=== PATIENT | female | born 1975 | race African-American/Black ===

== ENCOUNTER 2016-10-30 17:10 | Emergency (ER) | payer SELFPAY | END 2016-10-30 18:00 | disposition home or self-care (01) | LOC: NAV ERS 17:10 | DX: B86 Scabies (principal); L30.9 Dermatitis, unspecified; I10 Essential (primary) hypertension; E66.9 Obesity, unspecified; F41.9 Anxiety disorder, unspecified; F32.9 Major depressive disorder, single episode, unspecified; F17.210 Nicotine dependence, cigarettes, uncomplicated; Z79.899 Other long term (current) drug therapy | CPT/HCPCS: 99282 ==

== ENCOUNTER 2017-03-29 07:55 | Emergency (ER) | payer SELFPAY ==
[2017-03-29] MEDS ORDERED: Azithromycin 250 MG TAB ONE (08:20)
== END 2017-03-29 08:28 | disposition home or self-care (01) ==
LOC: NAV ERS 07:55
DX: J02.0 Streptococcal pharyngitis (principal); E66.9 Obesity, unspecified; I10 Essential (primary) hypertension; M06.9 Rheumatoid arthritis, unspecified; M10.9 Gout, unspecified; F41.9 Anxiety disorder, unspecified; F32.9 Major depressive disorder, single episode, unspecified; F17.210 Nicotine dependence, cigarettes, uncomplicated; Z79.899 Other long term (current) drug therapy
CPT/HCPCS: 99283

== ENCOUNTER 2017-05-18 16:55 | Emergency (ER) | payer SELFPAY ==
[2017-05-18] MEDS ORDERED: methylPREDNISolone Sod Succ/PF 125 MG/2 ML VIAL ONE (17:37)
== END 2017-05-18 18:37 | disposition home or self-care (01) ==
LOC: NAV ERS 16:55
DX: R21 Rash and other nonspecific skin eruption (principal); I10 Essential (primary) hypertension; E66.9 Obesity, unspecified; M06.9 Rheumatoid arthritis, unspecified; M10.9 Gout, unspecified; F41.9 Anxiety disorder, unspecified; F32.9 Major depressive disorder, single episode, unspecified; Z79.899 Other long term (current) drug therapy
CPT/HCPCS: 96372; J2930

== ENCOUNTER 2017-07-08 10:01 | Emergency (ER) | payer SELFPAY ==
[~2017-07-08 10:01] MED LIST: Iopamidol 370 76% 100 ML VIAL ONE
[2017-07-08] MEDS ORDERED: predniSONE 20 MG TAB ONE (10:18)
--- NOTE | 2017-07-08 10:43 | RAD ---
CHEST 1 VIEW: Date: 07/08/17 HISTORY: Shortness of breath. COMPARISON: 12/03/16. FINDINGS: Portable upright chest demonstrates cardiomegaly. Pulmonary vessels and hilum are normal. Costophreni c angles are clear. No mass. No consolidation. No pneumothorax or osseous abnormalities. IMPRESSION: No acute cardiopulmonary process. POS: [facility]
[2017-07-08] MEDS ORDERED: Magnesium Sulfate 2 GM/NS 0.9% 50 ML BAG ONE (11:31)
[2017-07-08] MEDS ORDERED: Sodium Chloride 0.9% 1,000 ML ONE (11:44)
[2017-07-08 11:49] LABS: ALT (SGPT) 42 U/L (8-55); AST (SGOT) 35 U/L (5-34); Albumin 4.1 g/dL (3.5-5.0); Alkaline Phosphatase 76 U/L (40-150); Anion Gap 15 mmol/L (10-20); BUN (Urea Nitrogen) 8 mg/dL (7.0-18.7); Bilirubin, Total 0.4 mg/dL (0.2-1.2); Calc. Creatinine Clearance 0 mL/min (70-130); Calcium 9.1 mg/dL (7.8-10.44); Carbon Dioxide 24 mmol/L (22-29); Chloride 103 mmol/L (98-107); Estimated GFR-MDRD 74; Globulin 3.3 g/dL (2.4-3.5); Glucose 138 mg/dL (70-105); Protein, Total 7.4 g/dL (6.0-8.3); Sodium 139 mmol/L (136-145)
[2017-07-08 11:51] LABS: CKMB 0.9 ng/mL (0-6.6); Troponin I 0.038 ng/mL (< 0.028)
[2017-07-08 11:52] LABS: Potassium 2.9 mmol/L (3.5-5.1)
[2017-07-08 11:55] LABS: Amphetamine Not Detected (NotDetected); Barbiturates Screen Not Detected (NotDetected); Benzodiazepine Screen Not Detected (NotDetected); Cocaine Metabolite Screen Not Detected (NotDetected); Medtox Control Line Valid? VALID (VALID); Methadone Not Detected (NotDetected); Methamphetamine Not Detected (NotDetected); Opiate Screen Not Detected (NotDetected); Oxycodone Screen Not Detected (NotDetected); Phencyclidine (PCP) Not Detected (NotDetected); THC/Cannabinoid Screen Not Detected (NotDetected); Tricyclic Screen Not Detected (NotDetected)
[2017-07-08] MEDS ORDERED: Potassium Chloride 20 MEQ/100 ML PREMIX BAG ONE ×2 (11:55→14:41)
[2017-07-08 12:13] LABS: Eosinophils 2 % (0-10); Lymphocytes 47 % (21-51); MDiff Complete? YES; Mean Corpuscular HGB CONC 31.1 g/dL (32.0-36.0); Mean Corpuscular Hemoglobin 28.1 pg (27.0-31.0); Mean Corpuscular Volume 90.4 fl (81.0-99.0); Mean Platelet Volume 10.4 fL (7.4-10.4); Monocytes 6 % (0-10); Neutrophil 38 % (42-75); Nucleated RBC 1 % (0); Platelet Count 245 thou/uL (130-400); RBC Distribution Width 12.6 % (11.5-14.5); Reactive Lymphocytes 6 % (0-10); White Blood Cell (WBC) Count 6.3 thou/uL (4.8-10.8)
[2017-07-08 12:15] LABS: Bilirubin Negative (Negative); Clarity Clear (Clear); Glucose, Urine (Dipstick) Negative (Negative); Leukocyte Trace (Negative); Nitrite Negative (Negative); Protein, Urine (Dipstick) > or equal to 300 mg/dL (Neg-Trace); Urobilinogen 0.2 mg/dL (0.2-1.0); pH, Urine 5.5 (5.0-9.0)
[2017-07-08 12:16] LABS: Blood, Urine Negative (Negative); Specific Gravity, Urine 1.031 (1.002-1.036)
[2017-07-08] MEDS ORDERED: Sodium Chloride 0.9% 100 ML ONE (13:38)
[2017-07-08] MEDS ORDERED: Ketorolac Tromethamine 30 MG/ML VIAL ONE (13:53)
[2017-07-08] MEDS ORDERED: Levofloxacin 500 mg/D5W 100 ml Premix Bag ONE (14:30)
--- NOTE | 2017-07-08 15:15 | CT ---
CT ANGIOGRAM OF THE CHEST: Date: 07/08/17 HISTORY: Tachycardia. Wheezing. Elevated D-Dimer. Shortness of breath. COMPARISON: None. TECHNIQUE: CT angiogram of the chest is performed in the axial plane. Sagittal and coronal, as well as bilateral oblique three-dimensional reformatted images are submitted for interpretation. FINDINGS: Limited evaluation of the pulmonary arterial system due to location of IV and subsequent rate of inje ction. Essential pulmonary arterial system is adequately assessed and there is no evidence of central pulmonary artery filling defect to suggest thrombosis. The lobar, segmental, and subsegmental arteri es cannot be adequately assessed. There is no mediastinal mass. Heart size is within normal limits. No pericardial effusion. Minimal co ronary artery calcifications. Thoracic aorta and upper abdominal aorta have a normal caliber. No manuelito aortic fat stranding. Visualized upper solid organs are unremarkable. Trachea and central bronchi are patent. There are nonspecific ground-glass and tree-in-bud opacities involving the right upper lobe, right lower lobe, and to a lesser extent left lower lobe. There is a more focal ground-glass opacity in the right upper lobe, measuring 3.1 x 1.2 cm. Infection, possibly atypical, is favored. There is no pleural effusion. There is no pneumothorax. There are no osteoblastic or lytic lesions. IMPRESSION: 1. Limited evaluation of the pulmonary arterial system due to limited contrast bolus administration. No obvious central PE. 2. Multilobar atypical pneumonia. POS: [facility]
== END 2017-07-08 16:27 | disposition short-term general hospital (02) ==
LOC: NAV ERS 10:01
DX: J18.9 Pneumonia, unspecified organism (principal); E66.9 Obesity, unspecified; I10 Essential (primary) hypertension; F41.9 Anxiety disorder, unspecified; M06.9 Rheumatoid arthritis, unspecified; F32.9 Major depressive disorder, single episode, unspecified; Z79.899 Other long term (current) drug therapy
CPT/HCPCS: 71010; 71275; 80053; 80306; 81003; 81015; 82553; 84484; 85025; 85379; 87040; 93005; 94640; 96361; 96365; 96366; 96367; 96368; 96375; J1885; J1956; J3370; J3475; J3480; J7050; J7506; J7620

== ENCOUNTER 2017-09-04 07:55 | Emergency (ER) | payer SELFPAY ==
[2017-09-04] MEDS ORDERED: diphenhydrAMINE 50 MG/ML VIAL ONE (08:52)
[2017-09-04] MEDS ORDERED: Sodium Chloride 0.9% 1,000 ML ONE (08:52)
[2017-09-04] MEDS ORDERED: methylPREDNISolone Sod Succ/PF 125 MG/2 ML VIAL ONE (08:52)
[2017-09-04] MEDS ORDERED: Promethazine HCl 25 MG/ML VIAL ONE (08:52)
== END 2017-09-04 10:55 | disposition home or self-care (01) ==
LOC: NAV ERS 07:55
DX: L40.9 Psoriasis, unspecified (principal); R51 Headache; I10 Essential (primary) hypertension; E66.9 Obesity, unspecified; M10.9 Gout, unspecified; M06.9 Rheumatoid arthritis, unspecified; F41.9 Anxiety disorder, unspecified; F32.9 Major depressive disorder, single episode, unspecified; Z79.899 Other long term (current) drug therapy
CPT/HCPCS: 96365; 96375; J1200; J2550; J2930; J7050

== ENCOUNTER 2017-11-05 01:02 | Emergency (ER) | payer SELFPAY ==
[2017-11-05] MEDS ORDERED: Mag-Al Plus 1200 MG/1200 MG/120 MG/30 ML UDCUP ONE (01:20)
[2017-11-05] MEDS ORDERED: Lidocaine Viscous Sol 2% 15 ml UD Cup ONE (01:20)
== END 2017-11-05 01:56 | disposition short-term general hospital (02) ==
LOC: NAV ERS 01:02
DX: R10.13 Epigastric pain (principal); I10 Essential (primary) hypertension; E66.9 Obesity, unspecified; M06.9 Rheumatoid arthritis, unspecified; M10.9 Gout, unspecified; F41.9 Anxiety disorder, unspecified; F32.9 Major depressive disorder, single episode, unspecified; Z79.899 Other long term (current) drug therapy
CPT/HCPCS: 93005

== ENCOUNTER 2018-04-02 08:28 | Emergency (ER) | payer SELFPAY ==
[2018-04-02] MEDS ORDERED: predniSONE 20 MG TAB ONE (08:57)
== END 2018-04-02 09:12 | disposition home or self-care (01) ==
LOC: NAV ERS 08:28
DX: L30.8 Other specified dermatitis (principal); I10 Essential (primary) hypertension; F41.9 Anxiety disorder, unspecified; F32.9 Major depressive disorder, single episode, unspecified; M10.9 Gout, unspecified; M06.9 Rheumatoid arthritis, unspecified; Z79.899 Other long term (current) drug therapy
CPT/HCPCS: 99282; J7506

== ENCOUNTER 2018-12-14 13:24 | Emergency (ER) | payer SELFPAY ==
--- NOTE | 2018-12-14 14:18 | RAD ---
EXAM: Left foot: 3 views INDICATIONS: Joint pain COMPARISON: None. FINDINGS: Tarsals unremarkable. Enthesophytes are seen from the calcaneus. Mild DJD at the tarsal met atarsal joints. MTP joints unremarkable. No fracture or acute abnormality. IMPRESSION: No acute finding
== END 2018-12-14 14:55 | disposition home or self-care (01) ==
LOC: NAV ERS 13:24
DX: M10.9 Gout, unspecified (principal); I10 Essential (primary) hypertension; E66.9 Obesity, unspecified; F41.9 Anxiety disorder, unspecified; F32.9 Major depressive disorder, single episode, unspecified; Z79.899 Other long term (current) drug therapy
CPT/HCPCS: 36415; 84550

== ENCOUNTER 2019-03-25 18:34 | Emergency (ER) | payer OTHER ==
[2019-03-25] MEDS ORDERED: Sodium Chloride 0.9% 1,000 ML ONE (19:11)
[2019-03-25 19:20] LABS: #Basophils 0.2 thou/uL (0.0-0.2); #Eosinphils 0.3 thou/uL (0.0-0.7); #Lymphocytes 4.4 thou/uL (1.20-3.40); #Monocytes 0.7 thou/uL (0.11-0.59); #Neutrophils 5.6 thou/uL (1.40-6.50); %Basophils 1.7 % (0.0-1.0); %Eosinophils 3.1 % (0.0-10.0); %Lymphocytes 39.4 % (21.0-51.0); %Monocytes 6.1 % (0.0-10.0); %Neutrophils 49.7 % (42.0-75.0); Hemoglobin 13.4 g/dL (12.0-16.0); Mean Corpuscular Hemoglobin 27.3 pg (27.0-31.0); Mean Corpuscular Volume 87.9 fL (78.0-98.0); Mean Platelet Volume 10.8 fL (7.4-10.4); Platelet Count 323 thou/uL (130-400); Red Blood Cell (RBC) Count 4.93 mill/uL (4.20-5.40); White Blood Cell (WBC) Count 11.3 thou/uL (4.8-10.8)
[2019-03-25 19:32] LABS: ALT (SGPT) 33 U/L (8-55); AST (SGOT) 21 U/L (5-34); Albumin 4.2 g/dL (3.5-5.0); Alkaline Phosphatase 101 U/L (40-150); Anion Gap 15 mmol/L (10-20); BUN (Urea Nitrogen) 12 mg/dL (7.0-18.7); Bilirubin, Total 0.3 mg/dL (0.2-1.2); Calc. Creatinine Clearance 0 mL/min (70-130); Calcium 9.4 mg/dL (7.8-10.44); Carbon Dioxide 24 mmol/L (22-29); Chloride 107 mmol/L (98-107); Estimated GFR-MDRD 75; Globulin 3.2 g/dL (2.4-3.5); Glucose 134 mg/dL (70-105); Lipase 13 U/L (8-78); Potassium 3.2 mmol/L (3.5-5.1); Protein, Total 7.4 g/dL (6.0-8.3); Sodium 143 mmol/L (136-145)
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
== END 2019-03-25 21:15 | disposition home or self-care (01) ==
LOC: NAV ERS 18:34
DX: S43.402A Unspecified sprain of left shoulder joint, initial encounter (principal); S20.212A Contusion of left front wall of thorax, initial encounter; E66.9 Obesity, unspecified; I10 Essential (primary) hypertension; M10.9 Gout, unspecified; F41.9 Anxiety disorder, unspecified; F32.9 Major depressive disorder, single episode, unspecified; Z79.899 Other long term (current) drug therapy; V49.49XA Driver injured in collision with other motor vehicles in traffic accident, initial encounter
CPT/HCPCS: 71260; 74177; 80053; 83605; 83690; 85025; 93005; 94760; 96360; 96361; G0390; J7050; Q9967

== ENCOUNTER 2019-05-29 06:46 | Emergency (ER) | payer OTHER ==
[2019-05-29] MEDS ORDERED: Ibuprofen 800 MG TAB ONE (07:55)
== END 2019-05-29 08:00 | disposition home or self-care (01) ==
LOC: NAV ERS 06:46
DX: J06.9 Acute upper respiratory infection, unspecified (principal); E66.9 Obesity, unspecified; I10 Essential (primary) hypertension; M10.9 Gout, unspecified; F41.9 Anxiety disorder, unspecified; F32.9 Major depressive disorder, single episode, unspecified; Z79.899 Other long term (current) drug therapy
CPT/HCPCS: 87804; 99283

== ENCOUNTER 2020-01-06 09:38 | Emergency (ER) | payer BC ==
[2020-01-06] MEDS ORDERED: Insulin Regular 300 UNITS/3 ML VIAL ONE (10:23)
[2020-01-06 10:28] LABS: Base Excess-Venous 10.1 mmol/L (-2.0 to 3.0); CO2 Tension (PvCO2) 42.8 mmHg (40.0-50.0); Potassium 2.2 mmol/L (3.5-5.1); Sodium 127 mmol/L (138-145); vO2 Saturation-calc 97.1 % (60.0-85.0)
[2020-01-06 10:29] LABS: Chloride 80 mmol/L (98-107); T. Carbon Dioxide 35.7 mmol/L (22.0-28.0)
[2020-01-06 10:30] LABS: Calcium, Ionized 0.87 mmol/L (See Comments:)
[2020-01-06 10:34] LABS: Bicarbonate (HCO3v) 34.4 mmol/L (22.0-28.0)
[2020-01-06 10:43] LABS: ALT (SGPT) 17 U/L (8-55); AST (SGOT) 13 U/L (5-34); Alkaline Phosphatase 116 U/L (40-110); Anion Gap 23 mmol/L (10-20); BUN (Urea Nitrogen) 10 mg/dL (7.0-18.7); Bilirubin, Total 0.5 mg/dL (0.2-1.2); Calc. Creatinine Clearance 0 mL/min (70-130); Carbon Dioxide 32 mmol/L (22-29); Chloride 77 mmol/L (98-107); Estimated GFR-MDRD 34; Globulin 2.7 g/dL (2.4-3.5); Protein, Total 6.7 g/dL (6.0-8.3); Sodium 129 mmol/L (136-145)
[2020-01-06] MEDS ORDERED: Sodium Chloride 0.9% 2,000 ML ONE (10:52)
[2020-01-06] MEDS ORDERED: NS 0.9% w/ 20 MEQ KCL 1,000 ML ONE (10:58)
[2020-01-06] MEDS ORDERED: Potassium Chloride 20 MEQ TAB ONE ×2 (11:05→12:34)
[2020-01-06 11:07] LABS: #Basophils 0.2 thou/uL (0.0-0.2); #Eosinphils 0.2 thou/uL (0.0-0.7); #Lymphocytes 3.6 thou/uL (1.20-3.40); #Monocytes 0.8 thou/uL (0.11-0.59); #Neutrophils 4.3 thou/uL (1.40-6.50); %Basophils 1.9 % (0.0-1.0); %Eosinophils 2.5 % (0.0-10.0); %Lymphocytes 39.1 % (21.0-51.0); %Monocytes 8.7 % (0.0-10.0); %Neutrophils 47.8 % (42.0-75.0); Mean Corpuscular HGB CONC 30.5 g/dL (32.0-36.0); Mean Corpuscular Hemoglobin 27.6 pg (27.0-31.0); Mean Corpuscular Volume 90.5 fL (78.0-98.0); Mean Platelet Volume 16.6 fL (7.4-10.4); Platelet Count 223 thou/uL (130-400); RBC Distribution Width 11.9 % (11.5-14.5); Red Blood Cell (RBC) Count 5.45 mill/uL (4.20-5.40); White Blood Cell (WBC) Count 9.1 thou/uL (4.8-10.8)
[2020-01-06] MEDS ORDERED: Ondansetron PF 4 MG/2 ML Vial ONE (11:09)
[2020-01-06 11:18] LABS: Potassium 2.5 mmol/L (3.5-5.1)
[2020-01-06 11:20] LABS: Glucose 855 mg/dL (70-105)
[2020-01-06 12:04] LABS: Bilirubin Negative (Negative); Blood, Urine Negative (Negative); Clarity Clear (Clear); Glucose, Urine (Dipstick) 500 mg/dL (Negative); Leukocyte Negative (Negative); Nitrite Negative (Negative); Protein, Urine (Dipstick) Negative (Neg-Trace); Urobilinogen 0.2 mg/dL (Less than 2)
[2020-01-06 17:35] LABS: Hemoglobin A1c Greater than 14.0 % (4.0-6.0)
== END 2020-01-06 12:50 | disposition short-term general hospital (02) ==
LOC: NAV ERS 09:38
DX: E11.65 Type 2 diabetes mellitus with hyperglycemia (principal); E87.6 Hypokalemia; E66.9 Obesity, unspecified; M06.9 Rheumatoid arthritis, unspecified; I10 Essential (primary) hypertension; M10.9 Gout, unspecified; Z87.891 Personal history of nicotine dependence; Z79.899 Other long term (current) drug therapy; Z79.4 Long term (current) use of insulin
CPT/HCPCS: 80053; 81003; 82010; 82330; 82803; 83036; 85014; 85025; 93005; 96361; 96365; 96366; 96375; J1815; J2405; J3480; J7050

== ENCOUNTER 2020-05-21 13:58 | Emergency (ER) | payer BC, SELFPAY ==
--- NOTE | 2020-05-21 14:25 | RAD ---
Right foot 3 views HISTORY: Pain. FINDINGS: Lisfranc joint alignment is anatomic. Loss of plantar arch on the lateral view. Osteophytosis throughout the foot. Achilles enthesophyte arises from the posterior aspect of the calc aneus. Benign-appearing osseous excrescences project from the inferior aspect of the calcaneus and the medial margin of the talar neck. No acute fracture, dislocation, or aggressive osseous erosions. IMPRESSION : No acute osseous abnormalities are demonstrated. Pes planus. Achilles heel spur.
--- NOTE | 2020-05-21 14:26 | RAD ---
Right ankle 3 views HISTORY: Pain. FINDINGS: Ankle mortise and talar dome are intact. Mild to moderate osteophytosis. Mild joint space n arrowing. Osseous excrescences at the calcaneus better detailed on dedicated foot exam. IMPRESSION : Mild osteoarthritic changes right ankle. No acute osseous abnormalities are demonstrated.
[2020-05-21] MEDS ORDERED: Ketorolac Tromethamine 60 MG/2 ML VIAL ONE (14:28)
[2020-05-21] MEDS ORDERED: traMADol HCl 50 MG TAB ONE (14:28)
== END 2020-05-21 14:50 | disposition home or self-care (01) ==
LOC: NAV ERS 13:58
DX: S93.401A Sprain of unspecified ligament of right ankle, initial encounter (principal); M10.9 Gout, unspecified; E66.9 Obesity, unspecified; I10 Essential (primary) hypertension; M06.9 Rheumatoid arthritis, unspecified; W18.2XXA Fall in (into) shower or empty bathtub, initial encounter; Z79.899 Other long term (current) drug therapy
CPT/HCPCS: 96372; J1885

== ENCOUNTER 2021-02-02 11:59 | Outpatient (CLI) | payer BC | END 2021-02-02 12:00 | disposition home or self-care (01) | LOC: NAV RAD 11:59 | PROVIDERS: ATTEND Family Medicine | DX: M54.5 Low back pain (principal); M47.816 Spondylosis without myelopathy or radiculopathy, lumbar region | CPT/HCPCS: 72072; 72100 ==

== ENCOUNTER 2021-03-20 12:40 | Emergency (ER) | payer BC, MEDICAID | END 2021-03-20 13:35 | disposition home or self-care (01) | LOC: NAV ERS 12:40 | DX: M25.531 Pain in right wrist (principal); I10 Essential (primary) hypertension; M06.9 Rheumatoid arthritis, unspecified; Z87.891 Personal history of nicotine dependence | CPT/HCPCS: 99283 ==

== ENCOUNTER 2021-07-06 15:17 | Outpatient (CLI) | payer BC | END 2021-07-06 15:18 | disposition home or self-care (01) | LOC: NAV RAD 15:17 | PROVIDERS: ATTEND Family Medicine | DX: J06.9 Acute upper respiratory infection, unspecified (principal); R05.9 Cough, unspecified; R91.8 Other nonspecific abnormal finding of lung field | CPT/HCPCS: 71046 ==

== ENCOUNTER 2021-07-15 20:17 | Emergency (ER) | payer BC ==
[2021-07-15] MEDS ORDERED: Sodium Chloride 0.9% 1,000 ML ONE ×2 (20:45→21:25)
[2021-07-15 21:14] LABS: ALT (SGPT) 30 U/L (8-55); AST (SGOT) 25 U/L (5-34); Albumin 4.3 g/dL (3.5-5.0); Alkaline Phosphatase 122 U/L (40-110); Anion Gap 19 mmol/L (10-20); BUN (Urea Nitrogen) 26 mg/dL (7.0-18.7); Bilirubin, Total 0.4 mg/dL (0.2-1.2); CK (CPK) 114 U/L (29-168); Calc. Creatinine Clearance 0 mL/min (70-130); Calcium 9.8 mg/dL (7.8-10.44); Carbon Dioxide 30 mmol/L (22-29); Chloride 90 mmol/L (98-107); Globulin 4.3 g/dL (2.4-3.5); Glucose 305 mg/dL (70-105); Lipase 25 U/L (8-78); Protein, Total 8.6 g/dL (6.0-8.3); Sodium 136 mmol/L (136-145)
[2021-07-15 21:15] LABS: Hemoglobin 15.9 g/dL (12.0-16.0); Mean Corpuscular HGB CONC 31.3 g/dL (32.0-36.0); Mean Corpuscular Hemoglobin 29.2 pg (27.0-31.0); Mean Corpuscular Volume 93.3 fL (78.0-98.0); Mean Platelet Volume 12.1 fL (7.4-10.4); Platelet Count 324 thou/uL (130-400); RBC Distribution Width 12.9 % (11.5-14.5); Red Blood Cell (RBC) Count 5.46 mill/uL (4.20-5.40); White Blood Cell (WBC) Count 26.8 thou/uL (4.8-10.8)
[2021-07-15 21:16] LABS: Base Excess-Venous 5.8 mmol/L (-2.0 to 3.0); Bicarbonate (HCO3v) 34.2 mmol/L (22.0-28.0); CO2 Tension (PvCO2) 61.1 mmHg (42.0-51.0); Calcium, Ionized 1.07 mmol/L (1.15-1.33); Chloride 92 mmol/L (98-107); Potassium 2.9 mmol/L (3.5-5.1); Sodium 139 mmol/L (138-145); T. Carbon Dioxide 36.1 mmol/L (22.0-28.0); vO2 Saturation-calc 47.9 % (60.0-85.0)
[2021-07-15 21:20] LABS: Potassium 2.9 mmol/L (3.5-5.1)
[2021-07-15] MEDS ORDERED: Cefepime 2 GM VIAL ONE (21:29)
[2021-07-15] MEDS ORDERED: Sodium Chloride 0.9% 100 ML ONE (21:29)
[2021-07-15 21:47] LABS: SARS-CoV-2 NAA Rapid Test Not Detected (NotDetected)
[2021-07-15 21:51] LABS: Bilirubin Negative (Negative); Blood, Urine Negative (Negative); Clarity Clear (Clear); Glucose, Urine (Dipstick) Negative (Negative); Ketone, Urine Negative (Negative); Leukocyte Moderate (Negative); Nitrite Negative (Negative); Protein, Urine (Dipstick) Negative (Neg-Trace); Urobilinogen 0.2 mg/dL (Less than 2)
[2021-07-15] MEDS ORDERED: Sodium Chloride 0.9% 0 ML ONE (21:51)
[2021-07-15 22:00] LABS: Eosinophils 2 % (0-10); Lymphocytes 38 % (21-51); MDiff Complete? YES; Monocytes 4 % (0-10); Neutrophil 56 % (42-75); Platelet Morphology Comment Appears Adequate; RBC Morphology Normal
[2021-07-15 22:02] LABS: Bacteria/HPF Rare-Few HPF (None Seen); RBC/HPF 0-3 HPF (0-3); Squamous Epithelial 21-50 HPF (0-3)
[2021-07-15 23:26] LABS: Lactic Acid 2.1 mmol/L (0.5-2.2)
== END 2021-07-15 23:30 | disposition short-term general hospital (02) ==
LOC: NAV ERS 20:17
DX: A41.9 Sepsis, unspecified organism (principal); R65.20 Severe sepsis without septic shock; J20.9 Acute bronchitis, unspecified; Z20.822 Contact with and (suspected) exposure to COVID-19; I10 Essential (primary) hypertension; E11.9 Type 2 diabetes mellitus without complications; E66.9 Obesity, unspecified; M06.9 Rheumatoid arthritis, unspecified; M10.9 Gout, unspecified; F17.210 Nicotine dependence, cigarettes, uncomplicated; Z79.4 Long term (current) use of insulin; Z79.899 Other long term (current) drug therapy
CPT/HCPCS: 0240U; 71045; 80053; 81003; 81015; 82010; 82330; 82550; 82803; 83605; 83690; 84443; 84484; 85025; 85379; 87040; 87086; 87149; 93005; 96365; 96367; J0692; J3370; J3490; J7030; J7050

== ENCOUNTER 2022-01-19 15:20 | Emergency (ER) | payer SELFPAY ==
[2022-01-19 16:28] LABS: Bilirubin Negative (Negative); Blood, Urine Negative (Negative); Clarity Clear (Clear); Glucose, Urine (Dipstick) >=1000 mg/dL (Negative); Ketone, Urine Negative (Negative); Leukocyte Negative (Negative); Nitrite Negative (Negative); Protein, Urine (Dipstick) Negative (Neg-Trace); Specific Gravity, Urine 1.015 (1.005-1.030); Urobilinogen 0.2 mg/dL (Less than 2); pH, Urine 5.5 (5.0-9.0)
[2022-01-19 16:30] LABS: Pregnancy Test - Urine (BHCG) Negative (Negative); Pregu Control Background? CLEAR/WHITE (CLR/WHITE); Pregu Control Bar Appear? YES (CONTROL BAR); Specific Gravity 1.015 (1.002-1.036)
[2022-01-19] MEDS ORDERED: predniSONE 20 MG TAB ONE (16:42)
[2022-01-19] MEDS ORDERED: traMADol HCl 50 MG TAB ONE (16:42)
== END 2022-01-19 17:10 | disposition home or self-care (01) ==
LOC: NAV ERS 15:20
DX: M06.9 Rheumatoid arthritis, unspecified (principal); M25.50 Pain in unspecified joint; E78.5 Hyperlipidemia, unspecified; I10 Essential (primary) hypertension; E66.9 Obesity, unspecified; Z87.891 Personal history of nicotine dependence; Z79.899 Other long term (current) drug therapy
CPT/HCPCS: 81003; 81025; 99283; J7512

== ENCOUNTER 2022-03-02 08:49 | Emergency (ER) | payer SELFPAY ==
[2022-03-02 10:14] LABS: #Basophils 0.1 thou/uL (0.0-0.2); #Eosinphils 0.4 thou/uL (0.0-0.7); #Lymphocytes 4.2 thou/uL (1.20-3.40); #Monocytes 0.5 thou/uL (0.11-0.59); #Neutrophils 5.5 thou/uL (1.40-6.50); %Basophils 1.4 % (0.0-1.0); %Lymphocytes 39.2 % (21.0-51.0); %Monocytes 4.4 % (0.0-10.0); Hemoglobin 12.5 g/dL (12.0-16.0); Mean Corpuscular HGB CONC 29.6 g/dL (32.0-36.0); Mean Corpuscular Hemoglobin 27.6 pg (27.0-31.0); Mean Corpuscular Volume 93.2 fL (78.0-98.0); Mean Platelet Volume 11.9 fL (7.4-10.4); Platelet Count 265 thou/uL (130-400); RBC Distribution Width 14.1 % (11.5-14.5); Red Blood Cell (RBC) Count 4.54 mill/uL (4.20-5.40); White Blood Cell (WBC) Count 10.8 thou/uL (4.8-10.8)
[2022-03-02 10:27] LABS: BHCG - Serum Negative (NEGATIVE); Pregs Control Bar Appear? YES (CONTROL BAR)
[2022-03-02 10:37] LABS: ALT (SGPT) 20 U/L (8-55); AST (SGOT) 24 U/L (5-34); Albumin 3.6 g/dL (3.5-5.0); Alkaline Phosphatase 86 U/L (40-110); Anion Gap 17 mmol/L (10-20); BUN (Urea Nitrogen) 8 mg/dL (7.0-18.7); Bilirubin, Total 0.4 mg/dL (0.2-1.2); Calc. Creatinine Clearance 0 mL/min (70-130); Calcium 8.8 mg/dL (7.8-10.44); Carbon Dioxide 17 mmol/L (22-29); Chloride 111 mmol/L (98-107); Estimated GFR 91; Globulin 3.3 g/dL (2.4-3.5); Glucose 140 mg/dL (70-105); Protein, Total 6.9 g/dL (6.0-8.3); Sodium 141 mmol/L (136-145)
[2022-03-02] MEDS ORDERED: Ketorolac Tromethamine 30 MG/ML VIAL ONE (10:53)
== END 2022-03-02 11:15 | disposition home or self-care (01) ==
LOC: NAV ERS 08:49
DX: L02.831 Carbuncle of head [any part, except face] (principal); R29.700 NIHSS score 0; I12.9 Hypertensive chronic kidney disease with stage 1 through stage 4 chronic kidney disease, or unspecified chronic kidney disease; E11.22 Type 2 diabetes mellitus with diabetic chronic kidney disease; N18.2 Chronic kidney disease, stage 2 (mild); E78.5 Hyperlipidemia, unspecified; M06.9 Rheumatoid arthritis, unspecified; M10.9 Gout, unspecified; F17.210 Nicotine dependence, cigarettes, uncomplicated; H40.9 Unspecified glaucoma; E66.01 Morbid (severe) obesity due to excess calories; Z68.45 Body mass index [BMI] 70 or greater, adult; Z79.4 Long term (current) use of insulin; Z79.899 Other long term (current) drug therapy
CPT/HCPCS: 70450; 80053; 84703; 85025; 87070; 87077; 87186; 87205; 96374; J1885

== ENCOUNTER 2022-04-27 17:54 | Emergency (ER) | payer SELFPAY | END 2022-04-27 18:41 | disposition home or self-care (01) | LOC: NAV ERS 17:54 | DX: M06.9 Rheumatoid arthritis, unspecified (principal); G89.4 Chronic pain syndrome; E78.5 Hyperlipidemia, unspecified; I12.9 Hypertensive chronic kidney disease with stage 1 through stage 4 chronic kidney disease, or unspecified chronic kidney disease; M10.9 Gout, unspecified; E11.22 Type 2 diabetes mellitus with diabetic chronic kidney disease; N18.2 Chronic kidney disease, stage 2 (mild); Z79.899 Other long term (current) drug therapy | CPT/HCPCS: 99283 ==

== ENCOUNTER 2022-05-04 16:17 | Emergency (ER) | payer OTHER, SELFPAY ==
[2022-05-04 17:12] LABS: Band 1 % (5-11); Eosinophils 2 % (0-10); Hemoglobin 14.4 g/dL (12.0-16.0); Lymphocytes 46 % (21-51); MDiff Complete? YES; Mean Corpuscular HGB CONC 32.8 g/dL (32.0-36.0); Mean Corpuscular Hemoglobin 29.6 pg (27.0-31.0); Mean Corpuscular Volume 90.3 fL (78.0-98.0); Mean Platelet Volume 11.7 fL (7.4-10.4); Monocytes 4 % (0-10); Neutrophil 46 % (42-75); Platelet Count 363 thou/uL (130-400); Platelet Morphology Comment Appears Adequate; RBC Distribution Width 11.7 % (11.5-14.5); Reactive Lymphocytes 1 % (0-10); Red Blood Cell (RBC) Count 4.87 mill/uL (4.20-5.40); White Blood Cell (WBC) Count 22.4 thou/uL (4.8-10.8)
[2022-05-04] MEDS ORDERED: Acetaminophen 500 MG TAB ONE (17:13)
[2022-05-04] MEDS ORDERED: Sodium Chloride 0.9% 1,000 ML ONE (17:13)
[2022-05-04] MEDS ORDERED: Sodium Chloride 0.9% 500 ML ONE ×2 (17:13→18:49)
[2022-05-04] MEDS ORDERED: Sodium Chloride 0.9% 250 ML 250 ML ONE (17:13)
[2022-05-04 17:19] LABS: ALT (SGPT) 19 U/L (8-55); AST (SGOT) 16 U/L (5-34); Albumin 3.8 g/dL (3.5-5.0); Alkaline Phosphatase 96 U/L (40-110); Anion Gap 19 mmol/L (10-20); BUN (Urea Nitrogen) 22 mg/dL (7.0-18.7); Bilirubin, Total 0.2 mg/dL (0.2-1.2); Calc. Creatinine Clearance 0 mL/min (70-130); Calcium 8.6 mg/dL (7.8-10.44); Carbon Dioxide 25 mmol/L (22-29); Chloride 98 mmol/L (98-107); Estimated GFR 70; Glucose 153 mg/dL (70-105); Protein, Total 6.8 g/dL (6.0-8.3); Sodium 140 mmol/L (136-145)
[2022-05-04 17:26] LABS: Potassium 2.3 mmol/L (3.5-5.1)
[2022-05-04] MEDS ORDERED: Potassium Chloride 20 MEQ TAB ONE ×2 (17:38→22:06)
[2022-05-04] MEDS ORDERED: Cefepime 2 GM VIAL ONE (17:53)
[2022-05-04] MEDS ORDERED: Sodium Chloride 0.9% 100 ML ONE (17:53)
[2022-05-04 18:08] LABS: Bilirubin Negative (Negative); Blood, Urine Trace (Negative); Glucose, Urine (Dipstick) Negative (Negative); Ketone, Urine Negative (Negative); Leukocyte Moderate (Negative); Nitrite Negative (Negative); Protein, Urine (Dipstick) Negative (Neg-Trace); Specific Gravity, Urine 1.025 (1.005-1.030); Urobilinogen 0.2 mg/dL (Less than 2); pH, Urine 5.5 (5.0-9.0)
[2022-05-04 18:09] LABS: Clarity SL HAZY (Clear)
[2022-05-04 18:18] LABS: RBC/HPF 0-3 HPF (0-3)
[2022-05-04 18:19] LABS: Bacteria/HPF Rare-Few HPF (None Seen); Transitional Epithelial 0-3 HPF (None Seen); Trichomonas/HPF 2+ HPF (None Seen)
[2022-05-04 18:37] LABS: SARS-CoV-2 NAA Rapid Test Not Detected (NotDetected)
[2022-05-04] MEDS ORDERED: Vancomycin HCl 500 MG VIAL ONE (18:49)
[2022-05-05] MEDS ORDERED: Cefepime 2 GM VIAL ONE ×2 (01:18→11:47)
[2022-05-05] MEDS ORDERED: Sodium Chloride 0.9% 100 ML ONE ×2 (01:18→11:47)
[2022-05-05 07:27] LABS: Potassium 2.7 mmol/L (3.5-5.1)
[2022-05-05] MEDS ORDERED: Potassium Chloride 20 MEQ TAB ONE ×2 (07:32→09:42)
[2022-05-05] MEDS ORDERED: Vancomycin HCl 1 GM in Sodium Chloride 0.9% 250 ML 250 ML IVPB SCH ×2 (08:00→09:30)
[2022-05-05] MEDS ORDERED: Sodium Chloride 0.9% 250 ML 0 ML ONE (09:29)
[2022-05-05] MEDS ORDERED: Sodium Chloride 0.9% 500 ML ONE (09:36)
[2022-05-05] MEDS ORDERED: CeleCOXIB 100 MG CAP ONE (10:30)
[2022-05-05] MEDS ORDERED: Lisinopril 10 MG TAB ONE (10:30)
[2022-05-05] MEDS ORDERED: Chlorthalidone 25 MG TAB PO SCH (10:45)
[2022-05-05] MEDS ORDERED: Lantus 1000 UNITS/10 ML VIAL SC SCH (10:45)
[2022-05-05] MEDS ORDERED: Atorvastatin Calcium 40 MG TAB PO SCH (10:45)
[2022-05-05] MEDS ORDERED: VICTOZA SC SCH (10:45)
[2022-05-05] MEDS ORDERED: Amlodipine 10 MG TAB PO SCH (10:45)
[2022-05-05] MEDS ORDERED: Topiramate 25 MG TAB PO SCH ×2 (10:45→21:00)
[2022-05-05] MEDS ORDERED: Amlodipine 5 MG TAB ONE (11:08)
[2022-05-05] MEDS ORDERED: metroNIDAZOLE 500 MG TAB ONE (13:29)
[2022-05-05 13:34] LABS: #Basophils 0.2 thou/uL (0.0-0.2); #Eosinphils 0.5 thou/uL (0.0-0.7); #Lymphocytes 6.5 thou/uL (1.20-3.40); #Monocytes 0.9 thou/uL (0.11-0.59); #Neutrophils 6.4 thou/uL (1.40-6.50); %Basophils 1.1 % (0.0-1.0); %Eosinophils 3.1 % (0.0-10.0); %Lymphocytes 44.9 % (21.0-51.0); %Monocytes 6.4 % (0.0-10.0); %Neutrophils 44.5 % (42.0-75.0); Mean Corpuscular HGB CONC 31.4 g/dL (32.0-36.0); Mean Corpuscular Hemoglobin 28.8 pg (27.0-31.0); Mean Corpuscular Volume 91.9 fL (78.0-98.0); Mean Platelet Volume 11.8 fL (7.4-10.4); Platelet Count 285 thou/uL (130-400); RBC Distribution Width 12.4 % (11.5-14.5); Red Blood Cell (RBC) Count 4.18 mill/uL (4.20-5.40); White Blood Cell (WBC) Count 14.4 thou/uL (4.8-10.8)
[2022-05-05 13:48] LABS: Magnesium 1.5 mg/dL (1.6-2.6)
[2022-05-05 14:30] LABS: ALT (SGPT) 18 U/L (8-55); AST (SGOT) 15 U/L (5-34); Albumin 3.2 g/dL (3.5-5.0); Alkaline Phosphatase 79 U/L (40-110); Anion Gap 18 mmol/L (10-20); BUN (Urea Nitrogen) 19 mg/dL (7.0-18.7); Bilirubin, Total 0.3 mg/dL (0.2-1.2); Calc. Creatinine Clearance 175 mL/min (70-130); Calcium 7.7 mg/dL (7.8-10.44); Carbon Dioxide 21 mmol/L (22-29); Chloride 105 mmol/L (98-107); Estimated GFR 77; Globulin 2.5 g/dL (2.4-3.5); Glucose 130 mg/dL (70-105); Potassium 3.6 mmol/L (3.5-5.1); Protein, Total 5.7 g/dL (6.0-8.3); Sodium 140 mmol/L (136-145)
[2022-05-06] MEDS ORDERED: Chlorthalidone 25 MG TAB PO SCH (09:00)
[2022-05-06] MEDS ORDERED: Atorvastatin Calcium 40 MG TAB PO SCH (09:00)
[2022-05-06] MEDS ORDERED: Lantus 1000 UNITS/10 ML VIAL SC SCH (09:00)
[2022-05-06] MEDS ORDERED: Amlodipine 10 MG TAB PO SCH (09:00)
== END 2022-05-04 17:22 | disposition short-term general hospital (02) ==
LOC: NAV ERS 16:17
DX: D72.829 Elevated white blood cell count, unspecified (principal); E11.9 Type 2 diabetes mellitus without complications; E87.6 Hypokalemia; N39.0 Urinary tract infection, site not specified; A59.9 Trichomoniasis, unspecified; R42 Dizziness and giddiness; R51.9 Headache, unspecified; R29.700 NIHSS score 0; I10 Essential (primary) hypertension; E78.5 Hyperlipidemia, unspecified; E66.9 Obesity, unspecified; M10.9 Gout, unspecified; M06.9 Rheumatoid arthritis, unspecified; I12.9 Hypertensive chronic kidney disease with stage 1 through stage 4 chronic kidney disease, or unspecified chronic kidney disease; E11.22 Type 2 diabetes mellitus with diabetic chronic kidney disease; N18.2 Chronic kidney disease, stage 2 (mild); E11.39 Type 2 diabetes mellitus with other diabetic ophthalmic complication; H42 Glaucoma in diseases classified elsewhere; F17.200 Nicotine dependence, unspecified, uncomplicated; Z20.822 Contact with and (suspected) exposure to COVID-19; Z79.4 Long term (current) use of insulin; Z79.899 Other long term (current) drug therapy
CPT/HCPCS: 36416; 51701; 71045; 80053; 81003; 81015; 83605; 83735; 85025; 87040; 96361; 96365; 96366; 96367; J0692; J3370; J3490; J7030; J7050; U0002

== ENCOUNTER 2022-05-29 17:05 | Emergency (ER) | payer OTHER ==
[2022-05-29] MEDS ORDERED: traMADol HCl 50 MG TAB ONE (18:46)
[2022-05-29] MEDS ORDERED: Ketorolac Tromethamine 60 MG/2 ML VIAL ONE (18:47)
== END 2022-05-29 19:08 | disposition home or self-care (01) ==
LOC: NAV ERS 17:05
DX: S93.401A Sprain of unspecified ligament of right ankle, initial encounter (principal); X58.XXXA Exposure to other specified factors, initial encounter
CPT/HCPCS: 96372; J1885

== ENCOUNTER 2022-09-09 13:21 | Emergency (ER) | payer BC, MEDICAID ==
[2022-09-09] MEDS ORDERED: predniSONE 20 MG TAB ONE (14:37)
== END 2022-09-09 14:46 | disposition home or self-care (01) ==
LOC: NAV ERS 13:21
DX: M25.512 Pain in left shoulder (principal); M06.9 Rheumatoid arthritis, unspecified; I12.9 Hypertensive chronic kidney disease with stage 1 through stage 4 chronic kidney disease, or unspecified chronic kidney disease; E11.22 Type 2 diabetes mellitus with diabetic chronic kidney disease; N18.2 Chronic kidney disease, stage 2 (mild); E66.9 Obesity, unspecified
CPT/HCPCS: 99283; J7512

== ENCOUNTER 2023-03-28 18:09 | Emergency (ER) | payer OTHER, MEDICAID ==
[2023-03-28] MEDS ORDERED: Morphine 2 MG/ML VIAL ONE (19:15)
[2023-03-28] MEDS ORDERED: Morphine 4 MG/ML VIAL ONE (19:15)
== END 2023-03-28 19:54 | disposition home or self-care (01) ==
LOC: NAV ERS 18:09
DX: M54.32 Sciatica, left side (principal); I10 Essential (primary) hypertension; I12.9 Hypertensive chronic kidney disease with stage 1 through stage 4 chronic kidney disease, or unspecified chronic kidney disease; N18.2 Chronic kidney disease, stage 2 (mild); E66.9 Obesity, unspecified; Z79.4 Long term (current) use of insulin; Z79.899 Other long term (current) drug therapy
CPT/HCPCS: 72131; 96372; J2270; J2272

== ENCOUNTER 2023-07-04 09:57 | Emergency (ER) | payer MEDICAID, OTHER | END 2023-07-04 11:27 | disposition home or self-care (01) | LOC: NAV ERS 09:57 | DX: M54.42 Lumbago with sciatica, left side (principal); I12.9 Hypertensive chronic kidney disease with stage 1 through stage 4 chronic kidney disease, or unspecified chronic kidney disease; N18.2 Chronic kidney disease, stage 2 (mild); E11.22 Type 2 diabetes mellitus with diabetic chronic kidney disease | CPT/HCPCS: 99283 ==

== ENCOUNTER 2023-08-09 10:19 | Outpatient (CLI) | payer OTHER, MEDICAID | END 2023-08-09 10:20 | disposition home or self-care (01) | LOC: NAV RAD 10:19 | PROVIDERS: ATTEND Nurse Practitioner Family | DX: M25.561 Pain in right knee (principal); M17.11 Unilateral primary osteoarthritis, right knee ==

== ENCOUNTER 2023-09-05 08:42 | Outpatient (CLI) | payer OTHER, MEDICAID | END 2023-09-05 08:43 | disposition home or self-care (01) | LOC: NAV RAD 08:42 | PROVIDERS: ATTEND Nurse Practitioner Family | DX: M51.16 Intervertebral disc disorders with radiculopathy, lumbar region (principal); M47.816 Spondylosis without myelopathy or radiculopathy, lumbar region | CPT/HCPCS: 72100 ==

== ENCOUNTER 2024-02-22 09:17 | Emergency (ER) | payer MEDICAID, OTHER ==
[2024-02-22] MEDS ORDERED: diphenhydrAMINE 50 MG/ML VIAL ONE (09:39)
[2024-02-22] MEDS ORDERED: Metoclopramide HCl 10 MG (2 mL) VIAL ONE (09:39)
[2024-02-22 10:08] LABS: #Basophils 0.2 thou/uL (0.0-0.2); #Eosinphils 0.6 thou/uL (0.0-0.7); #Lymphocytes 5.9 thou/uL (1.20-3.40); #Monocytes 0.8 thou/uL (0.11-0.59); #Neutrophils 4.7 thou/uL (1.40-6.50); %Basophils 1.9 % (0.0-1.0); %Eosinophils 4.6 % (0.0-10.0); %Lymphocytes 48.4 % (21.0-51.0); %Monocytes 6.8 % (0.0-10.0); %Neutrophils 38.3 % (42.0-75.0); Hematocrit 46.5 % (36.0-47.0); Hemoglobin 14.4 g/dL (12.0-16.0); Mean Corpuscular Hemoglobin 26.7 pg (27.0-31.0); Mean Corpuscular Volume 86.1 fl (78.0-98.0); Mean Platelet Volume 11.7 fL (7.4-10.4); Platelet Count 263 10x3/uL (130-400); RBC Distribution Width 12.4 % (11.5-14.5); White Blood Cell (WBC) Count 12.2 10x3/uL (4.8-10.8)
[2024-02-22 10:26] LABS: ALT (SGPT) 16 U/L (8-55); AST (SGOT) 32 U/L (5-34); Alkaline Phosphatase 86 U/L (40-110); Anion Gap 16 mmol/L (10-20); BUN (Urea Nitrogen) 20 mg/dL (7.0-18.7); Bilirubin, Total 0.3 mg/dL (0.2-1.2); Calc. Creatinine Clearance 0 mL/min (70-130); Calcium 9.1 mg/dL (7.8-10.44); Carbon Dioxide 19 mmol/L (22-29); Chloride 103 mmol/L (98-107); Estimated GFR 60; Globulin 3.7 g/dL (2.4-3.5); Glucose 124 mg/dL (70-105); Potassium 5.1 mmol/L (3.5-5.1); Protein, Total 7.7 g/dL (6.0-8.3); Sodium 133 mmol/L (136-145)
[2024-02-22 10:53] LABS: Influenza A by NAA Not Detected (NotDetected); Influenza B by NAA Not Detected (NotDetected); SARS-CoV-2 NAA Rapid Test Not Detected (NotDetected)
== END 2024-02-22 12:47 | disposition home or self-care (01) ==
LOC: NAV ERS 09:17
DX: G43.909 Migraine, unspecified, not intractable, without status migrainosus (principal); I12.9 Hypertensive chronic kidney disease with stage 1 through stage 4 chronic kidney disease, or unspecified chronic kidney disease; E11.22 Type 2 diabetes mellitus with diabetic chronic kidney disease; N18.2 Chronic kidney disease, stage 2 (mild)
CPT/HCPCS: 0240U; 80053; 85025; 96365; 96375; 99283; J1200; J2765

== ENCOUNTER 2024-05-01 11:52 | Emergency (ER) | payer OTHER ==
[2024-05-01] MEDS ORDERED: Ondansetron PF 4 MG/2 ML Vial ONE (12:19)
[2024-05-01] MEDS ORDERED: methylPREDNISolone Sod Succ/PF 125 MG/2 ML VIAL ONE (12:19)
[2024-05-01] MEDS ORDERED: Sodium Chloride 0.9% 1,000 ML ONE (12:19)
[2024-05-01] MEDS ORDERED: Ondansetron ODT 4 MG TAB ONE (12:53)
[2024-05-01 13:18] LABS: #Basophils 0.2 thou/uL (0.0-0.2); #Eosinphils 0.4 thou/uL (0.0-0.7); #Lymphocytes 4.2 thou/uL (1.20-3.40); #Monocytes 0.6 thou/uL (0.11-0.59); #Neutrophils 4.5 thou/uL (1.40-6.50); %Basophils 1.7 % (0.0-1.0); %Eosinophils 4.1 % (0.0-10.0); %Lymphocytes 42.4 % (21.0-51.0); %Monocytes 6.4 % (0.0-10.0); %Neutrophils 45.4 % (42.0-75.0); Hematocrit 50.5 % (36.0-47.0); Hemoglobin 15.7 g/dL (12.0-16.0); Mean Corpuscular HGB CONC 31.2 g/dL (32.0-36.0); Mean Corpuscular Hemoglobin 28.2 pg (27.0-31.0); Mean Corpuscular Volume 90.5 fl (78.0-98.0); Platelet Count 175 10x3/uL (130-400); RBC Distribution Width 11.8 % (11.5-14.5); Red Blood Cell (RBC) Count 5.58 mill/uL (4.20-5.40); White Blood Cell (WBC) Count 9.8 10x3/uL (4.8-10.8)
[2024-05-01 13:19] LABS: Mean Platelet Volume 10.8 fL (7.4-10.4)
[2024-05-01 13:32] LABS: ALT (SGPT) 15 U/L (8-55); AST (SGOT) 16 U/L (5-34); Albumin 3.9 g/dL (3.5-5.0); Alkaline Phosphatase 79 U/L (40-110); Anion Gap 19 mmol/L (10-20); BUN (Urea Nitrogen) 21 mg/dL (7.0-18.7); Bilirubin, Total 0.3 mg/dL (0.2-1.2); Calc. Creatinine Clearance 0 mL/min (70-130); Calcium 9.4 mg/dL (7.8-10.44); Carbon Dioxide 21 mmol/L (22-29); Chloride 101 mmol/L (98-107); Estimated GFR 41; Globulin 3.6 g/dL (2.4-3.5); Glucose 332 mg/dL (70-105); Lipase 24 U/L (8-78); Potassium 4.5 mmol/L (3.5-5.1); Protein, Total 7.5 g/dL (6.0-8.3); Sodium 136 mmol/L (136-145)
[2024-05-01] MEDS ORDERED: Insulin Regular, Human 100 UNIT/ML 10 ML VIAL ONE (14:00)
== END 2024-05-01 15:11 | disposition home or self-care (01) ==
LOC: NAV ERS 11:52
DX: R11.2 Nausea with vomiting, unspecified (principal); M25.552 Pain in left hip; E11.65 Type 2 diabetes mellitus with hyperglycemia; I12.9 Hypertensive chronic kidney disease with stage 1 through stage 4 chronic kidney disease, or unspecified chronic kidney disease; E11.22 Type 2 diabetes mellitus with diabetic chronic kidney disease; N18.2 Chronic kidney disease, stage 2 (mild); Z79.899 Other long term (current) drug therapy
CPT/HCPCS: 36416; 80053; 83690; 85025; 96372; 99284; J1815; J2405; J2919; J7030; Q0162

== ENCOUNTER 2024-06-25 06:47 | Emergency (ER) | payer OTHER | END 2024-06-25 07:32 | disposition home or self-care (01) | LOC: NAV ERS 06:47 | DX: H00.011 Hordeolum externum right upper eyelid (principal); I12.9 Hypertensive chronic kidney disease with stage 1 through stage 4 chronic kidney disease, or unspecified chronic kidney disease; E11.22 Type 2 diabetes mellitus with diabetic chronic kidney disease; N18.2 Chronic kidney disease, stage 2 (mild) | CPT/HCPCS: 99283 ==

== ENCOUNTER 2024-11-06 19:26 | Emergency (ER) | payer OTHER ==
[2024-11-06] MEDS ORDERED: Ketorolac Tromethamine 60 MG/2 ML VIAL ONE (20:18)
== END 2024-11-06 20:45 | disposition home or self-care (01) ==
LOC: NAV ERS 19:26
DX: M70.62 Trochanteric bursitis, left hip (principal); Y93.9 Activity, unspecified; E11.22 Type 2 diabetes mellitus with diabetic chronic kidney disease; I12.9 Hypertensive chronic kidney disease with stage 1 through stage 4 chronic kidney disease, or unspecified chronic kidney disease; N18.2 Chronic kidney disease, stage 2 (mild); F17.290 Nicotine dependence, other tobacco product, uncomplicated; E66.9 Obesity, unspecified
CPT/HCPCS: 96372; 99283; J1885

== ENCOUNTER 2025-04-16 19:05 | Emergency (ER) | payer SELFPAY, MEDICAID | END 2025-04-16 20:30 | disposition home or self-care (01) | LOC: NAV ERS 19:05 | DX: M54.42 Lumbago with sciatica, left side (principal); E11.22 Type 2 diabetes mellitus with diabetic chronic kidney disease; I12.9 Hypertensive chronic kidney disease with stage 1 through stage 4 chronic kidney disease, or unspecified chronic kidney disease; N18.2 Chronic kidney disease, stage 2 (mild); F17.210 Nicotine dependence, cigarettes, uncomplicated; Z79.84 Long term (current) use of oral hypoglycemic drugs; Z79.4 Long term (current) use of insulin; Z79.899 Other long term (current) drug therapy | CPT/HCPCS: 96372; 99283; J1010 ==

== ENCOUNTER 2025-06-01 22:02 | Emergency (ER) | payer OTHER ==
[2025-06-01] MEDS ORDERED: predniSONE 20 MG TAB ONE (22:48)
== END 2025-06-01 22:53 | disposition home or self-care (01) ==
LOC: NAV ERS 22:02
DX: J01.40 Acute pansinusitis, unspecified (principal); E11.22 Type 2 diabetes mellitus with diabetic chronic kidney disease; N18.2 Chronic kidney disease, stage 2 (mild); I12.9 Hypertensive chronic kidney disease with stage 1 through stage 4 chronic kidney disease, or unspecified chronic kidney disease; F17.210 Nicotine dependence, cigarettes, uncomplicated; Z79.899 Other long term (current) drug therapy
CPT/HCPCS: 87428; 99283; J7512

== ENCOUNTER 2025-07-02 00:41 | Emergency (ER) | payer OTHER ==
[2025-07-02] MEDS ORDERED: Ondansetron PF 4 MG/2 ML Vial ONE (01:09)
[2025-07-02 01:46] LABS: Hematocrit 43.8 % (36.0-47.0); Hemoglobin 14.9 g/dL (12.0-16.0); Mean Corpuscular Hemoglobin 28.6 pg (27.0-31.0); Mean Corpuscular Volume 84.3 fl (78.0-98.0); Platelet Count 286 10x3/uL (130-400); Red Blood Cell (RBC) Count 5.20 mill/uL (4.20-5.40); White Blood Cell (WBC) Count 8.6 10x3/uL (4.8-10.8)
[2025-07-02 01:49] LABS: INR-International Normal Ratio 1.0; Prothrombin Time 12.9 sec (12.0-14.7)
[2025-07-02 01:50] LABS: PTT 28.8 sec (22.9-36.1)
[2025-07-02 01:52] LABS: ALT (SGPT) 13 U/L (Less than 34); AST (SGOT) 21 U/L (11-34); Albumin 3.8 g/dL (3.1-4.5); Alkaline Phosphatase 98 U/L (40-110); Anion Gap 15 mmol/L (10-20); BUN (Urea Nitrogen) 15 mg/dL (7.0-18.7); Bilirubin, Total 0.4 mg/dL (0.3-1.2); Calc. Creatinine Clearance 0 mL/min (70-130); Calcium 9.3 mg/dL (7.8-10.44); Carbon Dioxide 22 mmol/L (22-29); Chloride 104 mmol/L (98-107); Globulin 3.1 g/dL (2.4-3.5); Glucose 165 mg/dL (70-105); Lipase 22 U/L (8-78); Magnesium 1.7 mg/dL (1.6-2.6); Potassium 3.7 mmol/L (3.5-5.1); Sodium 137 mmol/L (136-145)
[2025-07-02 01:53] LABS: Troponin I Less than 0.010 ng/mL (< 0.028)
[2025-07-02 02:07] LABS: MDiff Complete? YES; Platelet Adequacy Comment Appears Adequate; Toxic Granulation SLIGHT
[2025-07-02 02:39] LABS: Glucose, Urine (Dipstick) >=1000 mg/dL (Negative); Leukocyte Negative (Negative); Protein, Urine (Dipstick) Negative (Neg-Trace); Specific Gravity, Urine 1.010 (1.005-1.030)
[2025-07-02 02:40] LABS: Bacteria/HPF 1+ HPF (None Seen); CAUTI Indications for Culture Dysuria,urgency,freq; RBC/HPF 0-3 HPF (0-3)
[2025-07-02 02:41] LABS: Urine Culture Reflex No No
[2025-07-02 02:47] LABS: Cocaine Metabolite Screen Negative (Negative); THC/Cannabinoid Screen PRELIM POSITIVE (Negative); Tricyclic Screen PRELIM POSITIVE (Negative)
== END 2025-07-02 03:45 | disposition home or self-care (01) ==
LOC: NAV ERS 00:41
DX: J01.40 Acute pansinusitis, unspecified (principal); R42 Dizziness and giddiness; I12.9 Hypertensive chronic kidney disease with stage 1 through stage 4 chronic kidney disease, or unspecified chronic kidney disease; E11.22 Type 2 diabetes mellitus with diabetic chronic kidney disease; N18.2 Chronic kidney disease, stage 2 (mild); R29.700 NIHSS score 0; F17.210 Nicotine dependence, cigarettes, uncomplicated; Z79.899 Other long term (current) drug therapy
CPT/HCPCS: 36416; 70450; 71045; 80053; 80306; 81001; 83605; 83690; 83735; 84484; 85025; 85610; 85730; 93005; 94760; J2405; J7030